=== PATIENT | male | born 1970 | race Caucasian/White ===

== ENCOUNTER 2019-12-10 17:41 | Inpatient (IN) | payer OTHER ==
[~2019-12-10] VITALS: Ht 188 cm; Wt 105.9 kg
[2019-12-10] MEDS ORDERED: IV RINGERS SOLUTION,LACTATED 1,000 ML IV SCH (17:53)
--- NOTE | 2019-12-10 17:53 | PHYS DOC ---
Past History Past Medical History: Alcoholism, Bronchitis, GERD, Seizure Smoking: Cigarettes Alcohol Use: Heavy Adult General Chief Complaint Chief Complaint: ALCOHOL INTOXICATION.. " .. I ve been having diarrhea 4 x day... for last three days...".." Mary weak today... shaky...my gut hurts.. I feel like I am short of breath.. with anything I do... I feel like sometimes I have a fever.. .. I have had a cought.. but not much...comes up.. "" HPI HPI Patient is a 49 year old male who presents with above hx and complaints of diarrhea with weakness. Pt. complaints of generalized abd. discomfort. Some com plaints of fever and non-productive cough. Pt. has been drinking approximately one half to a fifth a day of vodka x last two days. Patient does smoke. Patient denies any intake bad food. No recent travel outside the to area. Patient denies any specific ill contacts. Patient denies any immunosuppression. Patient does have chronic bronchitis. He denies history of colitis with him or family members. .. Normally follows at [place], but they are on diversion. Pt. has had hx seizures with ETOH withdrawal. Review of Systems Review of Systems Constitutional: Denies fever or chills [] Eyes: Denies change in visual acuity, redness, or eye pain [] HENT: Denies nasal congestion or sore throat [] Respiratory: Denies cough or shortness of breath [] Cardiovascular: No additional information not addressed in HPI [] GI: Patient has complaints of abdominal pain, and diarrhea . Pt. patient denies , vomiting : Denies dysuria or hematuria [] Musculoskeletal: Denies back pain or joint pain []. The patient has complaints of generalized weakness and being shaky. Integument: Denies rash or skin lesions [] Neurologic: Denies headache, focal weakness or sensory changes [] Endocrine: Denies polyuria or polydipsia [] All other systems were reviewed and found to be within normal limits, except as documented in this note. Family History Family History Noncontributory to presentation Current Medications Current Medications See nursing for home meds Allergies Allergies NKDA Physical Exam Physical Exam Constitutional: Mild to Moderate distress, non-toxic appearance. [] HENT: Normocephalic, atraumatic, bilateral external ears normal, oropharynx dry, no oral exudates, nose normal. [] Eyes: PERRLA, EOMI, conjunctiva normal, no discharge. [] Neck: Normal range of motion, no tenderness, supple, no stridor. [] Cardiovascular:Tachycardia Heart rate regular rhythm, no murmur [] Lungs & Thorax: Bilateral breath sounds equal with scattered wheezes on auscultation [] Abdomen: Bowel sounds hyperactive soft, mild generalized tenderness, no masses, no pulsatile masses. Mild rebound to epigastric area. Pt. denies tarry stools. ( Declines rectal at this time) Skin: Warm, dry, no erythema, no rash. [] Back: No tenderness, no CVA tenderness. [] Extremities: No tenderness, no cyanosis, no clubbing, ROM intact, no edema. No psoas. Neurologic: Alert and oriented X 3, normal motor function, normal sensory function, no focal deficits noted. +Tremor. Psychologic: Affect anxious, agitated, judgement normal, mood normal. [] EKG EKG My interpretation EKG shows a sinus tachycardia at 122 bpm. Mild leftward axis. But no findings acute STEMI of contralateral changes.[] Radiology/Procedures Radiology/Procedures [][place] [address] IMAGING REPORT Signed PATIENT: DONTE HARGROVE ACCOUNT: [id number] : 1970 LOCATION: ER AGE: 49 SEX: M EXAM STATUS: PRE ER ORD. PHYSICIAN: HEAVENLY PHILLIP MD REASON: nv, diarrhea, pain PROCEDURE: ACUTE ABDOMEN SERIES Abdominal Series dated 12/10/2019. No comparison available. Clinical Indication: Abdominal pain. Findings: Single upright PA view the chest shows normal heart and mediastinal contours. There is peribronchial thickening with some prominent perihilar linear markings. No consolidation or pleural effusion. No pneumothorax. Flat and upright views of the abdomen show nondilated gas filled loops of bowel. No air-fluid level or pneumoperitoneum on the upright view. No abnormal calcifications are identified. Clips in the right upper quadrant compatible with prior cholecystectomy.. Impression chest: Mild peribronchial thickening, nonspecific. Consider acute or chronic bronchial inflammatory process Impression abdomen: Non-obstructive bowel gas pattern. Electronically signed by: Cristobal Eubanks MD (12/10/2019 6:39 PM) [id number] DICTATED AND SIGNED BY: CRISTOBAL EUBANKS MD DATE: 12/10/191838 CC: HEAVENLY PHILLIP MD ~ Course & Med Decision Making Course & Med Decision Making Pertinent Labs and Imaging studies reviewed. (See chart for details) Admit to Dr. Valverde for further tx. and evaluation. Informed at [address] Valdez is on for [facility]- admit Impression: 1. Weakness 2. Diarrhea 3. Hx. ETOH Abuse and 48 4. Hx. Cough Non-productive- Bronchitis 5. Leukopenia 3.8 with Thrombocytopenia 109 6. Dehydration 7. Hypokalemia 3.1 8. Elevated bilirubin total and direct 1.8/1.1 and elevated AST 223, ALT 127, and alkaline phosphatase 149 9. Elevated amylase 436 10.Abdomen Pain 11. Elevated Lipase 4626, Amylase 436 - Pancreatitis [] Dragon Disclaimer Dragon Disclaimer This electronic medical record was generated, in whole or in part, using a voice recognition dictation system. Departure Departure: Disposition: 01 HOME/RESIDENCE PRIOR TO ADM Condition: STABLE Dragon Disclaimer This chart was dictated in whole or in part using Voice Recognition software in a busy, high-work load, and often noisy Emergency Department environment. It may contain unintended and wholly unrecognized errors or omissions. Dragon Disclaimer This chart was dictated in whole or in part using Voice Recognition software in a busy, high-work load, and often noisy Emergency Department environment. It m ay contain unintended and wholly unrecognized errors or omissions. Dragon Disclaimer This chart was dictated in whole or in part using Voice Recognition software in a busy, high-work load, and often noisy Emergency Department environment. It may contain unintended and wholly unrecognized errors or omissions. Dragon Disclaimer This chart was dictated in whole or in part using Voice Recognition software in a busy, high-work load, and often noisy Emergency Department environment. It may contain unintended and wholly unrecognized errors or omissions. Dragon Disclaimer This chart was dictated in whole or in part using Voice Recognition software in a busy, high-work load, and often noisy Emergency Department environment. It may contain unintended and wholly unrecognized errors or omissions. Dragon Disclaimer This chart was dictated in whole or in part using Voice Recognition software in a busy, high-work load, and often noisy Emergency Department environment. It may contain unintended and wholly unrecognized errors or omissions. HEAVENLY PHILLIP MD Dec 10, 2019 17:53
[2019-12-10] MEDS ORDERED: ONDANSETRON PF 4 MG/2 ML VIAL. IVP ONE (18:30)
[2019-12-10] MEDS ORDERED: MVI, ADULT NO.4 WITH VIT K 10 ML, FOLIC ACID INJ 1 MG, THIAMINE INJ 100 MG in IV NORMAL... IV ONE ×4 (18:30)
[2019-12-10] MEDS ORDERED: KETOROLAC 30 MG/ML VIAL. IVP ONE (18:30)
[2019-12-10] MEDS ORDERED: FAMOTIDINE 20 MG/2 ML VIAL IVP ONE (18:30)
--- NOTE | 2019-12-10 18:42 | RAD ---
Abdominal Series dated 12/10/2019. No comparison available. Clinical Indication: Abdominal pain. Findings: Single upright PA view the chest shows normal heart and mediastinal contours. There is peribronchial thickening with some prominent perihilar linear markings. No consolidation or pleural effusion. No pneumothorax. Flat and upright views of the abdomen show nondilated gas filled loops of bowel. No air-fluid level or pneumoperitoneum on the upright view. No abnormal calcifications are identified. Clips in the right upper quadrant compatible with prior cholecystectomy.. Impression chest: Mild peribronchial thickening, nonspecific. Consider acute or chronic bronchial inflammatory process Impression abdomen: Non-obstructive bowel gas pattern. Electronically signed by: Cristobal Eubanks MD (12/10/2019 6:39 PM) [id number]
[2019-12-10 18:46] LABS: BASO % 1 % (0-3); EOS % 0 % (0-3); HEMATOCRIT 41.4 % (39.0-53.0); HEMOGLOBIN 14.3 g/dL (13.0-17.5); LYMPH # 0.4 x10^3/uL (1.0-4.8); LYMPH % 12 % (24-48); MEAN CORPUSCULAR HEMOGLOBIN 34 pg (25-35); MEAN CORPUSCULAR HGB CONC 34 g/dL (31-37); MEAN CORPUSCULAR VOLUME 98 fL (79-100); MONO # 0.4 x10^3/uL (0.0-1.1); MONO % 10 % (0-9); NEUT % 78 % (31-73); PLATELET COUNT 109 x10^3/uL (140-400); RED BLOOD COUNT 4.21 x10^6/uL (4.30-5.70); RED CELL DISTRIBUTION WIDTH 15.1 % (11.5-14.5); WHITE BLOOD COUNT 3.8 x10^3/uL (4.0-11.0)
[2019-12-10 18:49] LABS: CREATININE 0.9 mg/dL (0.7-1.3); GFR 89.3; POTASSIUM 3.1 mmol/L (3.5-5.1)
[2019-12-10 18:56] LABS: ALBUMIN 3.7 g/dL (3.4-5.0); DIRECT BILIRUBIN 1.1 mg/dL (0.0-0.2); TOTAL BILIRUBIN 1.8 mg/dL (0.2-1.0); TOTAL PROTEIN 7.3 g/dL (6.4-8.2)
[2019-12-10 19:06] LABS: INFLUENZA A PATIENT NEGATIVE (NEGATIVE); INFLUENZA B PATIENT NEGATIVE (NEGATIVE)
[2019-12-10] MEDS ORDERED: IPRATRPIUM/ALBUTEROL 0.5/2.5MG 3 ML NEBU. NEB ONE (19:15)
[2019-12-10 19:22] LABS: BARBITURATES NEG (NEG); BENZODIAZEPINES NEG (NEG); CANNABINOIDS NEG (NEG); COCAINE NEG (NEG); METHADONE NEG (NEG); PHENCYCLIDINE NEG (NEG)
[2019-12-10] MEDS ORDERED: ONDANSETRON PF 4 MG/2 ML VIAL. IVP PRN (19:30)
[2019-12-10] MEDS ORDERED: ACETAMINOPHEN 325 MG TABLET PO PRN (19:30)
[2019-12-10] MEDS ORDERED: IPRATRPIUM/ALBUTEROL 0.5/2.5MG 3 ML NEBU. NEB SCH (20:00)
[2019-12-10] MEDS: IV RINGERS SOLUTION,LACTATED 1,000 ML IV SCH (20:40)
[2019-12-10 20:58] LABS: OPIATES NEG (NEG)
[2019-12-10 21:00] LABS: AMPHETAMINE/METHAMPHETAMINE NEG (NEG)
[2019-12-10 21:25] LABS: BACTERIA,URINE 0 /HPF (0-FEW); BILIRUBIN,URINE NEG (NEG); CLARITY,URINE CLEAR; GLUCOSE,URINE NEG (NEG); NITRITE,URINE NEG (NEG); SQUAMOUS EPITHELIAL CELL,UR OCC /LPF
[2019-12-10 21:26] LABS: COLOR,URINE AMBER
[2019-12-10] MEDS ORDERED: CONTRAST GIVEN MC PRN (22:30)
[2019-12-10] MEDS ORDERED: ALBUTEROL SULFATE 8GM INHALER. INH PRN (22:30)
[2019-12-10] MEDS ORDERED: ALBUTEROL SULFATE 2.5 MG/3 ML NEBU. NEB PRN (22:45)
[2019-12-10] MEDS ORDERED: IOHEXOL 300 MG/ML 75 ML VIAL. IV ONE (22:45)
[2019-12-10 23:30] VITALS: BP 148/100
--- NOTE | 2019-12-10 23:32 | EKG ---
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
[2019-12-11] MEDS ORDERED: LORazepam 1 MG TABLET PO PRN ×3 (02:00→15:15)
[2019-12-11] MEDS: IV RINGERS SOLUTION,LACTATED 1,000 ML IV SCH (02:46)
[2019-12-11] MEDS ORDERED: NAPR500T8 PO (03:31)
[2019-12-11] MEDS ORDERED: TRAZ-125 PO (03:31)
[2019-12-11] MEDS ORDERED: PARO20TA3 PO (03:31)
[2019-12-11] MEDS ORDERED: HYDR25CA75 PO (03:31)
[2019-12-11] MEDS ORDERED: CYCL-331 PO (03:31)
[2019-12-11] MEDS ORDERED: PROP20TA PO (03:31)
[2019-12-11] MEDS ORDERED: HYDR30CR33 RC (03:31)
[2019-12-11] MEDS ORDERED: OMEP40CA45 PO (03:31)
[2019-12-11] MEDS ORDERED: MVI, ADULT NO.4 WITH VIT K 10 ML, THIAMINE INJ 100 MG, FOLIC ACID INJ 1 MG in IV NORMAL... IV SCH ×4 (09:00)
[2019-12-11 10:04] VITALS: BP 143/92
--- NOTE | 2019-12-11 11:00 | HP ---
ADMIT DATE: 12/11/2019 ADMISSION HISTORY AND PHYSICAL ATTENDING PHYSICIAN: Vidal Rodrigez MD CHIEF COMPLAINT: Alcohol intoxication and loose stools. HISTORY OF PRESENT ILLNESS: The patient is a chronic alcoholic. He drinks one-fifth of vodka daily. He is complaining of abdominal symptoms, stating that he is very shaky, "my gut hurts." He is a short of breath. He has a nonproductive cough. He was admitted from the ED with acute alcohol intoxication with impending delirium tremens. PAST MEDICAL HISTORY: Significant for essential hypertension, chronic alcoholism, gastroesophageal reflux disease and alcohol withdrawal seizures. SOCIAL HISTORY: He is a smoker up to a pack of cigarettes daily. Alcohol use heavy, one-fifth of vodka daily for many years. PRESCRIPTION MEDICATIONS: None. He is very noncompliant. FAMILY HISTORY: Unobtainable. REVIEW OF SYSTEMS: Unobtainable. PHYSICAL EXAMINATION: GENERAL: When I saw him, this is a pleasant gentleman who was sedated from the [facility] protocol. INITIAL VITAL SIGNS: Showed a blood pressure 169/110, repeat was 140/100, temperature 100.6 degrees Fahrenheit, oxygen saturation 99% on room air. HEENT: Head is without trauma. Pupils are reactive. Sclerae are nonicteric. Oropharynx clear. NECK: Supple, no bruits. LUNGS: Shallow respirations. CARDIOVASCULAR: Showed regular heart tones. No obvious gallops. Peripheral pulses are palpable and full. ABDOMEN: Soft, scaphoid, nontender. Bowel sounds are hypoactive. EXTREMITIES: Showed no cyanosis or edema. NEUROLOGIC FINDINGS: The patient is sedated and unresponsive to commands due to his Ativan. Acute abdominal series showed nonobstructive bowel gas pattern. LABORATORY DATA: Hemoglobin was 14.3 g/dL with a white count of 3800. Electrolytes are within normal range. Potassium 3.1 mEq. Troponin was negative. Transaminases elevated, total bilirubin 1.8, alkaline phosphatase is 149. SGOT and SGPT were 227 and 127 respectively. A serum amylase level is 436. Lipase is 4626. Clinically, he does not have pancreatitis at this time. ASSESSMENT: 1. A 49-year-old gentleman, chronic alcoholic with abdominal pain. 2. Probable early pancreatitis. 3. Diarrhea related to alcohol use. 4. Gastroesophageal reflux disease. 5. History of withdrawal seizures. 6. Generalized debilitation. 7. Probable alcoholic gastritis. PLAN: 1. Admit to the inpatient unit. 2. He did have a COVID-19 swab pending. 3. IV hydration. 4. Clear liquid diet as tolerated. 5. CIWA protocol with Ativan. 6. Monitor for withdrawal symptoms and seizures. VIDAL RODRIGEZ MD DR: TAI/ariana JOB#: [id number] / [id number]
[2019-12-11] MEDS: LORazepam 1 MG TABLET PO PRN ×3 (18:24→23:35)
[2019-12-11 19:46] VITALS: BP 113/62
[2019-12-11] MEDS: ACETAMINOPHEN 325 MG TABLET PO PRN (21:03)
[2019-12-11 21:49] VITALS: BP 128/88
[2019-12-12 04:18] VITALS: BP 136/94
[2019-12-12] MEDS: LORazepam 1 MG TABLET PO PRN ×5 (05:32→21:42)
[2019-12-12 06:28] LABS: BASO % 1 % (0-3); EOS # 0.1 x10^3/uL (0.0-0.7); EOS % 2 % (0-3); HEMATOCRIT 34.8 % (39.0-53.0); HEMOGLOBIN 11.7 g/dL (13.0-17.5); LYMPH # 0.8 x10^3/uL (1.0-4.8); LYMPH % 24 % (24-48); MEAN CORPUSCULAR HEMOGLOBIN 34 pg (25-35); MEAN CORPUSCULAR HGB CONC 34 g/dL (31-37); MEAN CORPUSCULAR VOLUME 100 fL (79-100); MONO # 0.3 x10^3/uL (0.0-1.1); MONO % 9 % (0-9); NEUT # 2.2 x10^3uL (1.8-7.7); NEUT % 64 % (31-73); PLATELET COUNT 78 x10^3/uL (140-400); RED BLOOD COUNT 3.49 x10^6/uL (4.30-5.70); RED CELL DISTRIBUTION WIDTH 15.3 % (11.5-14.5); WHITE BLOOD COUNT 3.4 x10^3/uL (4.0-11.0)
[2019-12-12 06:51] LABS: ALBUMIN 3.1 g/dL (3.4-5.0); ALBUMIN/GLOBULIN RATIO 0.9 (1.0-1.7); CALCIUM 9.2 mg/dL (8.5-10.1); CREATININE 0.7 mg/dL (0.7-1.3); GFR 119.4; TOTAL BILIRUBIN 1.5 mg/dL (0.2-1.0); TOTAL PROTEIN 6.4 g/dL (6.4-8.2)
[2019-12-12 07:03] LABS: POTASSIUM 2.9 mmol/L (3.5-5.1)
--- NOTE | 2019-12-12 08:41 | PN ---
DATE: 12/12/2019 ATTENDING PHYSICIAN: Dr. Rodrigez. SUBJECTIVE: Weakness and shakes, abdominal pain improved. No further nausea, not hungry. OBJECTIVE FINDINGS: VITAL SIGNS: Temperature 98.3 degrees Fahrenheit, blood pressure 136/94, oxygen saturation 98% on room air. Pulse and respirations were normal. HEENT: Head is without trauma. Pupils are reactive. Sclerae are nonicteric. Oropharynx is clear. NECK: Supple, no bruits. LUNGS: Otherwise clear. Shallow respirations. ABDOMEN: Soft, scaphoid, nontender, no organomegaly. Bowel sounds are hypoactive. EXTREMITIES: Show no cyanosis or edema. NEUROLOGIC: Sober, alert. LABORATORY STUDIES: Potassium is 2.9 mEq, total bilirubin is down to 1.5. He had elevated amylase and lipase. Symptoms are improved. The current literature shows that there is not good correlation, so therefore were not getting daily amylase and lipase rather than treating the patient on clinical response. ASSESSMENT: 1. A 49-year-old gentleman with acute alcohol intoxication. 2. Chronic alcoholism. 3. Pancreatitis symptoms resolved. 4. Underlying depression. 5. Substance abuse. 6. Noncompliance. 7. Asymptomatic hypokalemia. PLAN: 1. Potassium and magnesium replacement. 2. Advance diet as tolerated. 3. Follow up chemistries. 4. Tentative discharge home tomorrow. VIDAL RODRIGEZ MD DR: TAI/ariana JOB#: [id number] / [id number]
[2019-12-12] MEDS: POTASSIUM CHLORIDE 20 MEQ TABLET.ER. PO SCH ×2 (09:29→20:05)
[2019-12-12 11:00] VITALS: BP 128/87
[2019-12-12 15:00] VITALS: BP 126/83
[2019-12-12] MEDS: PANTOPRAZOLE 40 MG TABLET. PO SCH (18:15)
[2019-12-12] MEDS: ACETAMINOPHEN 325 MG TABLET PO PRN (19:41)
[2019-12-12 19:47] VITALS: BP 139/91
[2019-12-13] MEDS: LORazepam 1 MG TABLET PO PRN ×4 (00:02→07:36)
[2019-12-13 05:38] VITALS: BP 152/91
[2019-12-13] MEDS: PANTOPRAZOLE 40 MG TABLET. PO SCH (07:36)
[2019-12-13] MEDS: POTASSIUM CHLORIDE 20 MEQ TABLET.ER. PO SCH (07:37)
[2019-12-13] MEDS ORDERED: NICOTINE 21MG PATCH. TD PRN (07:45)
--- NOTE | 2019-12-13 09:32 | DS ---
DATE OF DISCHARGE: 12/13/2019 ATTENDING PHYSICIAN: Dr. Rodrigez. FINAL DISCHARGE DIAGNOSES: 1. Acute alcohol intoxication. 2. Chronic alcoholism. 3. Pancreatitis, resolved. 4. Diarrhea, resolved. 5. Alcoholic gastritis. 6. Remote history of withdrawal seizures. 7. Generalized debilitation. 8. Underlying depression with anxiety and most likely PTSD in addition. HISTORY OF PRESENT ILLNESS: The patient is a 49-year-old gentleman, chronic alcoholic. He drinks a fifth of vodka a day. He is a [facility] patient. He lives at [facility] on the [facility]. He called for ambulance. [facility] He drinks a bottle of vodka a day. He was very tremulous and shaky. He had diarrhea. PHYSICAL EXAMINATION: Please see the dictated note. PERTINENT LABORATORY AND X-RAY STUDIES: Clostridium difficile toxin was negative for C. diff. Hemoglobin maintained at 14.3 g/dL with white count of 3400. Admission amylase was 436. Lipase 4600. Because of the lack of correlation, we did not repeat lab work. Clinically, he was better. Potassium was 3.1 mEq. Repeat of 2.9. He will be on supplementation. He is asymptomatic and will follow up with low potassium as an outpatient. On the fourth hospital day, he was sober, alert. His COVID-19 swab was negative. He is ready for discharge. I recommended p.r.n. Ativan and 7 more days of K-Dur. 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 The Ativan is 1 mg p.o. q. 6 hours p.r.n., #30. His other home meds are unchanged that include the following: He should continue his Flexeril as needed, hydroxyzine p.r.n., omeprazole, Paxil 50 mg daily, Inderal 60 mg daily and trazodone 200 mg at bedtime. I suggest that he stop the Naprosyn. He was discharged from our hospital in stable condition with explicit drug followup care at the [facility]. TOTAL DISCHARGE TIME SPENT: 39 minutes. VIDAL RODRIGEZ MD DR: TAI/ariana JOB#: [id number] / [id number]
[2019-12-13 10:00] VITALS: BP 141/100
== END 2019-12-13 10:30 | disposition home or self-care (01) | DRG 391 ==
LOC: ER 17:41 → EDSEX 17:41 → ICU 18:30
PROVIDERS: ADMIT Hospitalist; ATTEND Hospitalist
DX: K29.20 Alcoholic gastritis without bleeding (principal); K85.90 Acute pancreatitis without necrosis or infection, unspecified; R17 Unspecified jaundice; F10.221 Alcohol dependence with intoxication delirium; D69.6 Thrombocytopenia, unspecified; D72.819 Decreased white blood cell count, unspecified; R19.7 Diarrhea, unspecified; E86.0 Dehydration; E87.6 Hypokalemia; F17.200 Nicotine dependence, unspecified, uncomplicated; Z20.828 Contact with and (suspected) exposure to other viral communicable diseases; F41.8 Other specified anxiety disorders; F43.10 Post-traumatic stress disorder, unspecified; I10 Essential (primary) hypertension; J42 Unspecified chronic bronchitis; K21.9 Gastro-esophageal reflux disease without esophagitis; Z91.19 Patient's noncompliance with other medical treatment and regimen; Z79.899 Other long term (current) drug therapy
CPT/HCPCS: 36415; 74022; 80048; 80053; 80076; 80307; 81001; 82150; 82550; 83690; 84484; 85025; 85610; 85730; 87804; 93005; 94640; 96365; 96375; G0480; J1885; J2060; J2405; J3490; J7120; 99285-25; J7030